=== PATIENT | female | born 1980 | race Caucasian/White ===

== ENCOUNTER 2022-04-05 09:14 | Outpatient (CLI) | payer OTHER | END 2022-04-05 10:16 | disposition home or self-care (01) | LOC: NST 09:14 | PROVIDERS: ATTEND Obstetrics & Gynecology Gynecology | DX: Z34.83 Encounter for supervision of other normal pregnancy, third trimester (principal) ==

== ENCOUNTER 2022-05-14 14:30 | Inpatient (IN) | payer OTHER ==
[~2022-05-14] VITALS: Ht 162.6 cm; Wt 76.2 kg
[2022-05-22] MEDS ORDERED: PRENATAL TABLE1 EAC1 PO (10:31)
[2022-05-22] MEDS ORDERED: VALTREX1000 MG PO (10:32)
== END 2022-05-24 13:00 | disposition home or self-care (01) | DRG 807 ==
LOC: OB/GYN 05-22 08:05 → LDR 05-22 08:05 → OB/GYN 05-22 19:45 → SURH 05-23 14:30 → OB/GYN 05-24 13:00
PROVIDERS: ADMIT Obstetrics & Gynecology Maternal & Fetal Medicine; ATTEND Obstetrics & Gynecology Maternal & Fetal Medicine
PROC: 10E0XZZ Delivery of Products of Conception, External Approach (ICD-10-PCS; principal; 2022-05-22)
PROC: 0HQ9XZZ Repair Perineum Skin, External Approach (ICD-10-PCS; 2022-05-22)
PROC: 4A1HXCZ Monitoring of Products of Conception, Cardiac Rate, External Approach (ICD-10-PCS; 2022-05-22)
DX: O70.0 First degree perineal laceration during delivery (principal); Z37.0 Single live birth; Z3A.39 39 weeks gestation of pregnancy; Z20.822 Contact with and (suspected) exposure to COVID-19